=== PATIENT | female | born 1990 | race Caucasian/White ===

== ENCOUNTER 2023-05-14 13:13 | Outpatient (RCR) | payer MEDICAID ==
[~2023-05-14 13:13] MED LIST: ATIVAN2 MG PO; COGENTIN 1MG1 MG/TAB PO; DDAVP; DEPAKOTE500 MG PO; MONONESSA 35 MC1 TA1; RISPERDAL3 MG PO; THORAZINE 225 MG/TAB PO
== END 2023-05-14 13:14 ==
LOC: MKS.ESL.PT 13:13
DX: M25.569 Pain in unspecified knee (principal)